=== PATIENT | female | born 1965 | race Caucasian/White ===

== ENCOUNTER → 2016-05-06 | Day surgery (SDC) | payer BC ==
[2016-04-26 15:24] VITALS: Ht 167.6 cm; Wt 90.9 kg
[2016-04-30 18:52] LABS: HEMATOCRIT 38.6 % (37-47); MEAN CORPUSCULAR HEMOGLOBIN 28.9 pg (25-34); MEAN CORPUSCULAR HGB CONC 33.9 g/dl (32-36); MEAN PLATELET VOLUME 10.5 fL (7.4-10.4); PLATELET COUNT 335 K/uL (130-400); RED BLOOD COUNT 4.54 M/uL (4.2-5.4); WHITE BLOOD COUNT 8.18 K/uL (4.8-10.8)
[2016-04-30 19:12] LABS: INR 1.1 (0.9-1.1); PROTHROMBIN TIME (PATIENT) 11.4 SECONDS (9.0-12.0)
[2016-04-30 19:16] LABS: CREATININE 0.69 mg/dl (0.60-1.20); POTASSIUM 3.8 mmol/L (3.5-5.1)
[~2016-05-06] VITALS: Ht 167.6 cm; Wt 90.9 kg
[~2016-05-06] MED LIST: ACET-1256 PO; ACET325T96 PO; BUPIVACAINE 0.5 % 5 MG/1 ML MPF 30ML VIAL ONE; CEFAZOLIN 2000 MG/60 ML D5W IV SCH; DEXAMETHASONE SOD INJ 4 MG/ML VIAL ONE; EpHEDrine SULFATE INJ 50 MG/ML AMP ONE; EpINEphrine INJ 1MG/ML AMP 1 MG/ML AMP ONE; FENTANYL CITRATE INJ 50 MCG/1 ML 2 ML VIAL ONE; GLYCOPYRROLATE INJ 0.2 MG/ML VIAL ONE; LACTATED RINGER'S 1000ML 1,000 ML IV PRN; LACTATED RINGER'S 1000ML 1,000 ML IV SCH; LIDOCAINE HCL 2% 2 ML VIAL (20MG/ML) ONE; LIDOCAINE/EPINEPHRINE 1% INJ 50 ML VIAL ONE; MELO7.5T6 PO; MIDAZOLAM HCL 1 MG/ML 2ML VIAL ONE; MoRPHine SULFATE 2 MG/ML CARP IV PRN; MoRPHine SULFATE 4 MG/ML 1 ML CARP\\VIAL IV PRN; NEOSTIGMINE METHYLSULFATE 5 MG/5 ML SYR ONE; ONDANSETRON INJ 2 MG/ML 2 ML VIAL IV PRN; ONDANSETRON INJ 2 MG/ML 2 ML VIAL ONE; OXYCODONE/ACETAMINOPHEN 5-325 TAB PO PRN; PHENYLEPHRINE HCL INJ 10 MG/ML VIAL ONE; PROPOFOL IV EMULSION 10 MG/ML 20 ML VIAL IV ONE; ROCURONIUM BROMIDE 10 MG/ML 5 ML VIAL ONE; SUCCINYLCHOLINE CHLORIDE 20 MG/ML 10 ML VIAL IV ONE
--- NOTE | 2016-05-06 10:57 | History & Physical Bridge - [place] ---
H&P Re-Evaluation Bridge Note: I have examined the patient, reviewed the History & Physical and in the interval since the performance of the History & Physical I have noted the following changes of clinical significance: No changes noted
--- NOTE | 2016-05-06 13:47 | [facility] Operative Report ---
Operative Report Operative Date May 06, 2016. 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 2) Extensive Debridement. 3) Long Head Biceps Tenotomy. 4) Open Distal Clavicle Excision. 5) Subacromial Decompression. 6) Manipulation Under Anesthesia. Surgeon Dr. Gupta Sewer Pipe Press Operator Surgeon(s) MD Patricia Jorgensen PA-C Estimated Blood Loss 10 ml Findings The left shoulder was then examined under anesthesia and it exhibited: Forward flexion and abduction to 90; external rotation to neutral; internal rotation 10 . The diagnostic arthroscopy commenced with the following findings: 1. The biceps anchor had a type I SLAP. 2. The anterior labrum was well adhered from 9:00 to the 6:00 position. There was some noted injection within the labrum. 3. The inferior labrum was normal. 4. The inferior pouch showed no loose bodies. 5. The posterior labrum was normal. 6. The articular surface of the glenoid had some Outerbridge type II changes. 7. The articular surface of humeral head was had some Outerbridge type II changes. 8. The long Head of the Biceps had significant injection along its course and especially at its attachment to the labrum. There was significant synovitis and capsular thickening superior and medial to the LHB. 9. The Subscapularis tendon was intact. There was significant synovitis and capsular thickening anterior to the subscap tendon. 10. The Supraspinatus tendon had some synovitis, but was bill intact. 11. The Infraspinatus and Teres Minor were intact. 12. The Subacromial space showed significant bursitis, impingement, and small bony spur. Following capsular release and manipulation under anesthesia of the left shoulder: The patient was able to obtain forward flexion and abduction up to 160 -165, external rotation to 45. Fluids (cc crystalloids) 1300 Specimens A.) Left Shoulder Distal Clavicle Drains n/a Anesthesia GET + Interscalene Nerve block Complication(s) None Disposition Recovery Room / PACU (Stable) Implants n/a Indications This is a pleasant 50-year-old female who has been having long-standing left shoulder pain and stiffness that has failed conservative management. They have MRI and clinical findings suggestive of he said capsulitis and AC joint arthritis. After a lengthy discussion regarding their options of conservative versus operative management, they have elected to proceed with surgery. The risks of surgery were discussed and include but not limited to: Infection, bleeding, nerve damage, continued pain, progression of arthritis, stiffness, decreased level of activity, and deep vein thrombosis. The patient understood all of their options and the risks of surgery and would like to proceed. The informed consent was signed. Description of Procedure The patient was taken to the operating room and following administration of her interscalene nerve block and general anesthetic, a multidisciplinary time-out was performed identifying my initials on the left shoulder as the correct and operative limb. The patient was then placed in beach chair position with all of their bony prominences well-padded. They were then prepped and draped in the usual orthopedic sterile fashion. All of the bony landmarks were marked as well as the planned incisions. The planned incisions were injected with a 50:50 mixture of 0.5% Marcaine plain and 1% Lidocaine with Epinephrine for a total of 8 cc. Then using a spinal needle which was placed intra-articularly into the glenohumeral joint and insufflated to 35 cc and there was noted appropriate back flow, an additional 15 cc were placed. The standard posterior portal was made with an 11-blade. Trocar was introduced into the glenohumeral joint in the standard fashion. Using a spinal needle, the anterior portal was placed lateral to the coracoid under direct visualization between the Long Head of the Biceps and Subscapularis. A 7mm cannula was then placed. The intra-articular portion of shoulder was addressed first with debriding any fraying from the superior labrum. The synovitis was also removed with a combination of mechanical shaver and CoolCut. Due to the significant injection within the biceps as well as the type I SLAP tear, biceps tenotomy was performed using hand punch. The stump was further debrided with mechanical shaver and CoolCut. Any of the synovitis and thickened capsule was then addressed with combination of mechanical shaver, CoolCut, and hand punch. The arthroscope had also been removed from the posterior portal and placed anteriorly for better posterior visualization. The arthroscope was then placed subacromially. There was bursitis noted. A lateral portal was created under direct visualization with a spinal needle. Once the bursitis was removed, the bursal side of the rotator cuff was normal. The small bony spur was removed. The arm was taken out of the [place] and a manipulation under anesthesia was performed obtaining 160-165 of for flexion and abduction, and 45 of external rotation. All of the instruments were removed. Our attention was drawn to the AC joint and making a 3 cm incision in-line with the anterior portal incision was made and carried down to the Superior AC joint ligament. A longitudinal incision was made in-line with the fibers of the superior AC joint ligament. The posterior and anterior aspect of the clavicle was exposed and using a sagittal saw the distal 7 mm was removed. A rasp was used to smooth out the edges. The wound was copiously irrigated. Bone wax was placed along the exposed bone. There was adequate space. The Superior AC joint ligament was closed with 0 Vicryl. The subcutaneous layer was closed with 3-0 Vicryl. The skin was closed with a running subcuticular stitch using 3-0 Prolene. Steri strips were placed over top. The portal sites were closed with 3-0 Prolene in a standard fashion. Xeroform was placed overtop followed by 4 x 4's, ABDs, and foam tape. The patient was placed in a sling. The sponge and needle counts were correct. POSTOPERATIVE INSTRUCTIONS: The patient will follow-up with physical therapy in two days. The patient will wear sling out in public and for comfort only. The patient will follow-up with me in 10 to 15 days. I attest to the content of the Intraoperative Record and any orders documented therein. Any exceptions are noted below.
--- NOTE | 2016-05-06 13:49 | Discharge Instructions-SurgCtr ---
Discharge Instructions Visit Reason for Visit: Left Shoulder Adhesive Capsulitis, Long Head Bicep Discharge Discharge Diagnosis / Problem: Status post Left shoulder Arthroscopy Discharge Goals Goal(s): Decrease discomfort, Improve function, Increase independence Activity Recommendations Activity Limitations: per Instructions/Follow-up section Lifting Limitations: no more than 5 pounds Exercise/Sports Limitations: gradually increase as tolerated May Resume Sexual Activity: when tolerated Shower/Bathe: may shower/bathe in 3 days Driving or Machine Use: Not while on narcotics or wearing sling Anesthesia . Post Anesthesia Instructions: If you have had General Anesthesia or IV Sedation: * Do not drive today. * Resume driving when surgeon permits. * Do not make important decisions or sign legal documents today. * Call surgeon for: 1. Temperature elevations greater than 101 degrees F. 2. Uncontrollable pain. 3. Excessive bleeding. 4. Persistent nausea and vomiting. 5. Medication intolerance (nausea, vomiting or rash). * For nausea and vomiting use only clear liquids such as: tea, soda, bouillon until nausea subsides, then gradually increase diet as tolerated. * If you have any concerns or questions, call your surgeon's office. If physician is unavailable and it is an emergency, call 911 or go to the nearest emergency room. . Instructions / Follow-Up Instructions / Follow-Up Dr. Gupta in 10-15 days. PT tomorrow. Diet Recommendations Home Diet: resume previous diet Procedures Procedures Performed: 1) Left Shoulder Arthroscopy, Capsular Release. 2) Extensive Debridement. 3) Long Head Biceps Tenotomy. 4) Open Distal Clavicle Excision. 5) Subacromial Decompression. 6) Manipulation Under Anesthesia. Pending Studies Studies pending at discharge: no Medical Emergencies . Who to Call and When: Medical Emergencies: If at any time you feel your situation is an emergency, please call 911 immediately. . Non-Emergent Contact Non-Emergency issues call your: Surgeon Call Non-Emergent contact if: temperature is above 101.5, your pain is not controlled, wound has increased drainage, wound has increased redness . . "Provider Documentation" section prepared by Cordell Gupta.
--- NOTE | 2016-05-06 13:59 | [facility] Operative Report ---
Operative Report Operative Date May 06, 2016. 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 2) Extensive Debridement. 3) Long Head Biceps Tenotomy. 4) Open Distal Clavicle Excision. 5) Subacromial Decompression. 6) Manipulation Under Anesthesia. Surgeon Dr. Gupta Paleontology Teacher Surgeon(s) MD Patricia Jorgensen PA-C Estimated Blood Loss 10 ml Findings same Fluids (cc crystalloids) 1300 Specimens A.) Left Shoulder Distal Clavicle Drains none Anesthesia general, block Complication(s) None Disposition Recovery Room / PACU Implants none Indications continued left shoulder pain and stiffness, MRI obtained, surgery recommended, consents signed. Description of Procedure taken to the OR, prepped and draped, I was present the entire case, please see Dr. Gupta's op note for further detail I attest to the content of the Intraoperative Record and any orders documented therein. Any exceptions are noted below.
[2016-05-06] MEDS: FENTANYL CITRATE INJ 50 MCG/1 ML 2 ML VIAL IV PRN ×2 (14:21→14:35)
--- NOTE | 2016-05-06 15:06 | Anesthesia Progress Nt - [facility] ---
Anesthesia Post Op Note Date & Time May 06, 2016 at 15:05 Vital Signs Pain Intensity: 0 Vital Signs Past 12 Hours Date Time Temp Pulse Resp B/P Pulse Ox O2 Delivery O2 Flow Rate FiO2 05/06/16 15:00 80 17 94 05/06/16 15:00 81 17 05/06/16 14:58 121/88 05/06/16 14:55 36.4 77 17 133/84 95 Room Air 05/06/16 14:55 78 17 94 05/06/16 14:55 80 17 05/06/16 14:53 133/84 05/06/16 14:50 81 15 99 05/06/16 14:50 80 15 05/06/16 14:48 127/83 05/06/16 14:45 80 17 05/06/16 14:45 81 17 99 05/06/16 14:44 127/81 05/06/16 14:40 91 16 05/06/16 14:40 90 16 94 05/06/16 14:38 142/92 05/06/16 14:35 80 17 05/06/16 14:35 81 17 99 05/06/16 14:33 123/90 05/06/16 14:30 78 17 05/06/16 14:30 78 17 99 05/06/16 14:28 127/96 05/06/16 14:25 79 21 05/06/16 14:25 80 21 99 05/06/16 14:23 142/97 05/06/16 14:20 78 27 100 05/06/16 14:20 79 27 05/06/16 14:18 124/82 05/06/16 14:15 92 26 100 05/06/16 14:15 92 26 05/06/16 14:13 137/87 05/06/16 14:10 77 15 05/06/16 14:10 77 15 100 05/06/16 14:08 128/87 05/06/16 14:05 75 16 05/06/16 14:05 75 16 100 05/06/16 14:03 132/90 05/06/16 14:00 71 14 100 05/06/16 14:00 71 14 05/06/16 13:58 37.4 80 12 116/93 99 Diffusion Mask 6 05/06/16 13:58 126/86 05/06/16 13:57 130/89 1/30/17 13:56 116/93 05/06/16 11:10 90 05/06/16 11:10 87 19 99 05/06/16 11:09 81 17 141/84 99 05/06/16 11:09 82 05/06/16 11:05 95 20 164/94 100 Mask 4 05/06/16 11:04 90 05/06/16 11:04 90 34 164/94 100 05/06/16 10:59 80 0 99 05/06/16 10:59 80 05/06/16 10:54 86 0 05/06/16 10:49 0 05/06/16 10:44 77 0 05/06/16 10:39 82 0 05/06/16 10:34 79 0 05/06/16 10:29 79 0 05/06/16 10:24 83 0 05/06/16 10:19 81 0 05/06/16 10:14 89 0 05/06/16 10:09 81 0 05/06/16 10:04 88 05/06/16 09:59 89 05/06/16 09:36 36.5 93 18 116/89 96 Room Air Notes Mental Status: alert / awake / arousable, participated in evaluation Pt Amnestic to Procedure: Yes Nausea / Vomiting: adequately controlled Pain: adequately controlled Airway Patency, RR, SpO2: stable & adequate BP & HR: stable & adequate Hydration State: stable & adequate Anesthetic Complications: no major complications apparent Pt doing well.
[2016-05-06 15:10] VITALS: TEMP 36.1
[2016-05-06 15:51] VITALS: BP 112/75; PULSE 80; O2SAT 94
== END | disposition home or self-care (01) ==
LOC: X.SURG 09:23
PROVIDERS: ATTEND Orthopaedic Surgery Sports Medicine
DX: M75.02 Adhesive capsulitis of left shoulder (principal); M19.012 Primary osteoarthritis, left shoulder; M75.52 Bursitis of left shoulder; M25.812 Other specified joint disorders, left shoulder; M75.22 Bicipital tendinitis, left shoulder; M65.812 Other synovitis and tenosynovitis, left shoulder; E66.9 Obesity, unspecified; Z68.32 Body mass index [BMI] 32.0-32.9, adult